=== PATIENT | female | born 1985 | race African-American/Black ===

== ENCOUNTER 2019-07-06 03:44 | Emergency (ER) | payer SELFPAY ==
[~2019-07-06] VITALS: Ht 172.7 cm; Wt 93.0 kg
[2019-07-06 03:49] VITALS: Ht 172.7 cm; Wt 93.0 kg
[2019-07-06 06:48] VITALS: BP 110/84
== END 2019-07-06 06:48 | disposition home or self-care (01) ==
LOC: ED 03:44
DX: Z77.098 Contact with and (suspected) exposure to other hazardous, chiefly nonmedicinal, chemicals (principal)